=== PATIENT | male | born 1960 | race Caucasian/White ===

== ENCOUNTER 2019-03-31 10:42 | Emergency (ER) | payer OTHER ==
[2019-03-31 10:50] VITALS: BP 154/91; PULSE 79; TEMP 98.3; BMI 37.8
--- NOTE | 2019-03-31 11:15 | PDOC ---
History of Present Illness - General Chief Complaint: Diarrhea Stated Complaint: SENT BY PCP - History of Present Illness Initial Comments: 03/31/19 11:15 Mr. Robles is a 59 yo male w/ pmh of HTN, HLD, GERD who presents for evaluation of advice of PCP. Patient reports he had abdominal pain w/ NBNB diarrhea on Saturday after eating some cold, pork soup. Patient reports he did not have appetite on Saturday and did not eat anything. Had 1 5-10 minute episode of self limited weakness at this same time. Mr. Robles says he was able to eat yesterday and is feeling better now. The patient denies chest pain, shortness of breath, and headache. Denies fever, chills, nausea, vomit, and constipation. Denies dysuria, frequency, urgency and hematuria. Past History - Past Medical History Allergies/Adverse Reactions: Allergies Allergy/AdvReac Type Severity Reaction Status Date / Time No Known Allergies Allergy Verified 03/31/19 10:45 COPD: No HTN: Yes - Psycho Social/Smoking Cessation Hx Smoking History: Never smoked Have you smoked in the past 12 months: No Hx Alcohol Use: No Drug/Substance Use Hx: No Review of Systems - Review of Systems Comments:: 03/31/19 11:15 GENERAL/CONSTITUTIONAL: No fever or chills. HEAD, EYES, EARS, NOSE AND THROAT: No change in vision. No ear pain or discharge. No sore throat. CARDIOVASCULAR: No chest pain or shortness of breath RESPIRATORY: No cough, wheezing, or hemoptysis. GASTROINTESTINAL: +Diarrhea w/ pain as described. No nausea, vomiting, or constipation. GENITOURINARY: No dysuria, frequency, or change in urination. MUSCULOSKELETAL: No joint or muscle swelling or pain. No neck or back pain. SKIN: No rash NEUROLOGIC: +Limited episode of weakness as described. No headache, vertigo, loss of consciousness, or change in strength/sensation. ENDOCRINE: No increased thirst. No abnormal weight change HEMATOLOGIC/LYMPHATIC: No anemia, easy bleeding, or history of blood clots. ALLERGIC/IMMUNOLOGIC: No hives or skin allergy. *Physical Exam - Vital Signs Last Vital Signs Temp Pulse Resp BP Pulse Ox 98.3 F 79 18 154/91 97 03/31/19 10:45 03/31/19 10:45 03/31/19 10:45 10/29/19 10:45 03/31/19 10:45 - Physical Exam Comments: 03/31/19 11:15 GENERAL: Awake, alert, and fully oriented, in no acute distress HEAD: No signs of trauma, normocephalic, atraumatic EYES: PERRLA, EOMI, sclera anicteric, conjunctiva clear ENT: Auricles normal inspection, hearing grossly normal, nares patent, oropharynx clear without exudates. Moist mucosa NECK: Normal ROM, supple, no lymphadenopathy, JVD, or masses LUNGS: No distress, speaks full sentences, clear to auscultation bilaterally HEART: Regular rate and rhythm, normal S1 and S2, no murmurs, rubs or gallops, peripheral pulses normal and equal bilaterally. ABDOMEN: Soft, nontender, normoactive bowel sounds. No guarding, no rebound. No masses EXTREMITIES: Normal inspection, Normal range of motion, no edema. No clubbing or cyanosis. NEUROLOGICAL: Cranial nerves II through XII grossly intact. Normal speech, normal gait, no focal sensorimotor deficits SKIN: Warm, Dry, normal turgor, no rashes or lesions noted. ED Treatment Course - LABORATORY CBC & Chemistry Diagram: 03/31/19 12:05 03/31/19 12:05 Medical Decision Making - Medical Decision Making 03/31/19 11:50 Mr. Robles is a 59 yo male w/ pmh as described who presents for evaluation of symptoms concerning for viral illness vs. food poisoning vs. cardiac problem vs. dehydration. Patient evaluated with labs as below as well as EKG and given 1L NS for hydration. EKG normal sinus. 03/31/19 13:29 Patient noted to be slightly anemic as below. Called PCP's office, discussed patient with MEMO Montero and alerted; previous Hgb 12.0 and will be followed up. Patient has no complaints at this time and will f/u in office. No concern for acute process, discharging to home. Laboratory Results - last 24 hr 03/31/19 03/31/19 12:05 12:05 WBC 6.0 RBC 4.40 Hgb 11.2 L Hct 34.7 L MCV 79.0 L MCH 25.5 L MCHC 32.2 RDW 14.8 Plt Count 278 MPV 7.7 Absolute Neuts (auto) 4.1 Neutrophils % 68.2 Lymphocytes % 25.6 Monocytes % 4.8 Eosinophils % 0.8 Basophils % 0.6 Nucleated RBC % 0 Sodium 140 Potassium 4.0 Chloride 108 H Carbon Dioxide 28 Anion Gap 4 L BUN 13.9 Creatinine 0.8 Est GFR (CKD-EPI)AfAm 114.13 Est GFR (CKD-EPI)NonAf 98.47 Random Glucose 94 Calcium 8.4 L Total Bilirubin 0.3 AST 9 L ALT 25 Alkaline Phosphatase 71 Total Protein 6.7 Albumin 3.9 Discharge - Discharge Information Problems reviewed: Yes Clinical Impression/Diagnosis: Diarrhea Qualifiers: Diarrhea type: unspecified type Qualified Code(s): R19.7 - Diarrhea, unspecified Condition: Good Disposition: HOME - Follow up/Referral - Patient Discharge Instructions Patient Printed Discharge Instructions: DI for Diarrhea and Traveler's Diarrhea -- Adult Additional Instructions: You were evaluated today in the ER for your pain. We performed basic labs and found you were slightly anemic. We alerted your primary care physician. We do not believe anything emergent is occurring at this time and you are safe for discharge. Please follow-up in office later this week for further evaluation. Return to ER if any further diarrhea, fever, pain, or other concerning symptoms. Usted fue evaluado hoy en la nathanael de emergencias por lambert dolor. Realizamos laboratorios bsicos y descubrimos que estabas un poco anmico. Alertamos a lambert mdico de atencin primaria. No creemos que ocurra nada emergente en jodi momento y usted est a jacklyn para el arslan. Kevin un seguimiento en la oficina a fines de esta semana para elizabeth evaluacin adicional. Regrese a la nathanael de emergencias si tiene ms diarrea, fiebre, dolor u otros sntomas relacionados. Print Language: SERBIAN - Post Discharge Activity
[2019-03-31] MEDS ORDERED: SODIUM CHLORIDE 1,000 ML IV STA (11:33)
[2019-03-31 12:17] LABS: BASO % 0.6 % (0-2.0); EOS % 0.8 % (0-4.5); HEMATOCRIT 34.7 % (35.4-49); HEMOGLOBIN 11.2 GM/dL (11.7-16.9); LYMPH % 25.6 % (8-40); MCH 25.5 pg (25.7-33.7); MCHC 32.2 g/dl (32.0-35.9); MEAN PLT VOLUME 7.7 fl (7.5-11.1); MONO % 4.8 % (3.8-10.2); NEUT % 68.2 % (42.8-82.8); PLATELET COUNT 278 K/MM3 (134-434); RDW 14.8 % (11.9-15.9)
[2019-03-31 12:45] LABS: ALBUMIN 3.9 g/dl (3.4-5.0); BILIRUBIN,TOTAL 0.3 mg/dL (0.2-1); BLOOD UREA NITROGEN 13.9 mg/dL (7-18); CALCIUM 8.4 mg/dL (8.5-10.1); CREATININE 0.8 mg/dL (0.55-1.3); TOT PROT 6.7 g/dl (6.4-8.2)
--- NOTE | 2019-03-31 13:49 | PDOC ---
Attending Attestation - Resident Resident Name: Zi Williamson - ED Attending Attestation I have performed the following: I have examined & evaluated the patient, The case was reviewed & discussed with the resident, I agree w/resident's findings & plan - HPI HPI: 03/31/19 13:44 59-year-old male p/w diarrhea 2d ago, non-bloody and without vomiting, decreased PO intake. no f/c. pt had episode of light-headedness yesterday but no LOC, denies any sxs now but went to Dr. Argueta's office for evaluation and was referred to ED because Dr. Argueta is currently on leave. no cp/palp/sob. h/o appendectomy, no complications. no travel/abx/sick contacts - Physicial Exam PE: 03/31/19 13:49 Vital signs stable Alert, ambulating, no acute distress No jaundice or pallor Moist mucosa Heart is regular, lungs are clear Abdomen is soft/nontender/nondistended. No palpable hernias, normal bowel sounds - Medical Decision Making 03/31/19 13:50 59-year-old male with mild enteritis 2 days ago, brief lightheadedness that seem to have been orthostatic in nature, resolved without episode of loss of consciousness, and likely in the setting of dehydration. Currently without red flags on history or exam, symptomatically improved. Labs are within normal limits, baseline hemoglobin IV fluid rehydration dispo accordingly Heart Score/ECG Review #1 ECG reviewed & interpreted by me at: 11:46 General ECG Interpretation: Sinus Rhythm, Normal Rate (69), Normal Intervals ( qtc 435), No acute ischemic changes
--- NOTE | 2019-03-31 15:14 | EKG ---
Test Reason : Blood Pressure : / mmHG Vent. Rate : 069 BPM Atrial Rate : 069 BPM P-R Int : 164 ms QRS Dur : 082 ms QT Int : 406 ms P-R-T Axes : 056 036 039 degrees QTc Int : 435 ms NORMAL SINUS RHYTHM NORMAL ECG NO PREVIOUS ECGS AVAILABLE Confirmed by MD Akshat, Js ([id number]) on 03/31/2019 3:14:26 PM Referred By: Confirmed By:Js Oden MD
== END 2019-03-31 14:01 | disposition home or self-care (01) ==
LOC: JER 10:42
PROC: 3E0337Z Introduction of Electrolytic and Water Balance Substance into Peripheral Vein, Percutaneous Approach (ICD-10-PCS; principal; 2019-03-31)
DX: R19.7 Diarrhea, unspecified (principal); I10 Essential (primary) hypertension; E78.5 Hyperlipidemia, unspecified; K21.9 Gastro-esophageal reflux disease without esophagitis
CPT/HCPCS: 36415; 80053; 85025; 93005; 93010; 96360; 99282-25; J7030

== ENCOUNTER 2024-07-31 19:55 | Emergency (ER) | payer OTHER ==
[2024-07-31] MEDS ORDERED: ACETAMINOPHEN INJECTION 100 ML ONE (20:41)
[2024-07-31 20:43] LABS: BASO % 0.4 % (0-2.0); HEMATOCRIT 36.2 % (35.4-49); HEMOGLOBIN 12.1 GM/dL (11.7-16.9); LYMPH % 11.9 % (8-40); MCHC 33.4 g/dl (32.0-35.9); MEAN CELL VOLUME 77.8 fl (80-96); MEAN PLT VOLUME 7.5 fl (7.5-11.1); MONO % 7.1 % (3.8-10.2); NEUT % 80.6 % (42.8-82.8); PLATELET COUNT 219 10^3/uL (134-434); RBC 4.65 M/mm3 (4.00-5.60); RDW 14.3 % (11.9-15.9); WHITE BLOOD COUNT 10.5 K/mm3 (4.0-10.0)
[2024-07-31] MEDS: SODIUM CHLORIDE 0.9% 500 ML INFUS.BAG IV ONE (20:46)
[2024-07-31] MEDS: ACETAMINOPHEN 1000 MG/100 ML BAG IVPB ONE (20:46)
[2024-07-31 20:53] LABS: INR 1.16 (0.83-1.09); PROTHROMBIN TIME (PATIENT) 12.8 SEC (9.7-13.0)
[2024-07-31 20:56] LABS: ACTIVATED PTT 31.2 SECONDS (25.2-36.5)
[2024-07-31 21:12] LABS: CHLORIDE 100 mmol/L (98-107); POTASSIUM 3.5 mmol/L (3.5-5.1); SODIUM 136 mmol/L (136-145)
[2024-07-31 21:14] LABS: CALCIUM 8.4 mg/dL (8.5-10.1)
[2024-07-31 21:15] LABS: ALBUMIN 3.8 g/dl (3.4-5.0); ANION GAP 8 mmol/L (4-13); BLOOD UREA NITROGEN 18.2 mg/dL (7-18); CO2 28 mmol/L (21-32); GLUCOSE,RANDOM 158 mg/dL (74-106)
[2024-07-31 21:18] LABS: SGOT/AST 11 U/L (15-37); SGPT/ALT 22 U/L (13-61)
[2024-07-31 21:19] LABS: BILIRUBIN,TOTAL 0.4 mg/dL (0.2-1)
[2024-07-31 21:21] VITALS: BMI 35.2
[2024-07-31 21:21] LABS: ALK PHOS 71 U/L (45-117)
[2024-07-31 23:05] VITALS: BP 132/82; RESP 16; TEMP 98.2
[2024-07-31 23:26] VITALS: PULSE 87
== END 2024-07-31 23:34 | disposition home or self-care (01) ==
LOC: JER 19:55
PROC: 3E033NZ Introduction of Analgesics, Hypnotics, Sedatives into Peripheral Vein, Percutaneous Approach (ICD-10-PCS; principal; 2024-07-31)
DX: U07.1 COVID-19 (principal); R55 Syncope and collapse; R06.02 Shortness of breath; R05.9 Cough, unspecified; R00.0 Tachycardia, unspecified
CPT/HCPCS: 0241U-QW; 36415; 71045-TC-FY; 80053; 84484; 85025; 85379; 85610; 85730; 86850; 86900; 86901; 93005; 93010; 96374; 99285-25; J0131